=== PATIENT | male | born 1990 | race Two or more races ===

== ENCOUNTER 2022-06-20 17:40 | Emergency (ER) | payer OTHER ==
[~2022-06-20] VITALS: Ht 175.3 cm; Wt 82.6 kg
[2022-06-20] MEDS ORDERED: KETOROLAC TROMETHAMINE INJ 30 MG/ML VIAL ONE (18:28)
[2022-06-20] MEDS ORDERED: KETOROLAC TROMETHAMINE INJ 60 MG/2 ML VIAL IM ONE (18:30)
[2022-06-20] MEDS ORDERED: IBUP-1955 PO (20:01)
[2022-06-20] MEDS ORDERED: CYCL10TA9 PO (20:01)
[2022-06-20 20:07] VITALS: BP 130/90
== END 2022-06-20 20:07 | disposition home or self-care (01) ==
LOC: ER 17:40
DX: S39.012A Strain of muscle, fascia and tendon of lower back, initial encounter (principal); Z79.899 Other long term (current) drug therapy; X50.0XXA Overexertion from strenuous movement or load, initial encounter; Y93.89 Activity, other specified; Y92.009 Unspecified place in unspecified non-institutional (private) residence as the place of occurrence of the external cause; Y99.8 Other external cause status
CPT/HCPCS: 99284; 96372; 72110; 76870; J1885

== ENCOUNTER → 2022-06-28 | Emergency (ER) | payer OTHER ==
[~2022-06-28] VITALS: Ht 170.2 cm; Wt 81.6 kg
[~2022-06-28] MED LIST: CYCL10TA9 PO; IBUP-1955 PO; KETOROLAC TROMETHAMINE INJ 60 MG/2 ML VIAL IM ONE
--- NOTE | 2022-06-28 14:22 | NUR ---
PERSISTENT BACK PAIN,SEEN HERE 10 DAYS AGO AFTER LIFTING A COUCH. PT A&OX4, C/O 04/20 PAIN. AMBULATION MAKES PAIN WORSE BUT ABLE. RADIATES BOTH SUPERIORLY AND INFERIORLY.
[2022-06-28 16:35] VITALS: BP 132/90
== END | disposition home or self-care (01) ==
LOC: ER 13:37
DX: S39.012A Strain of muscle, fascia and tendon of lower back, initial encounter (principal); Z79.899 Other long term (current) drug therapy; X50.0XXA Overexertion from strenuous movement or load, initial encounter; Y93.89 Activity, other specified; Y92.89 Other specified places as the place of occurrence of the external cause; Y99.8 Other external cause status
CPT/HCPCS: 99284; 72131; 96372; J1885